=== PATIENT | female | born 1990 | race African-American/Black ===

== ENCOUNTER 2024-07-22 05:50 | Day surgery (SDC) | payer BC, SELFPAY ==
[2024-07-14 10:27] VITALS: BMI 28.3
[2024-07-22 09:24] VITALS: BP 128/71; PULSE 57; RESP 18; TEMP 36.1; O2SAT 98
[2024-07-22] MEDS: LACTATED RINGERS 1,000 ML 150 ML IV CONT (09:36)
--- NOTE | 2024-07-22 09:36 | P.PNAN_ITS ---
Anes - Initial Pre Proc Eval Procedure: Operation Date: 07/22/24 10:30 Proposed Procedures p Esophagogastroduodenoscopy & Colonoscopy - Yong Hernandez MD Date/Time: 07/22/24 09:36 Surgeon: Yong Hernandez MD Pre Op Diagnosis: MIKAYLA Patient Data Age: 34 Gender: F Height: 1.63 m Weight: 72.8 kg Last Vital Signs Temp 97 F L 07/22/24 09:24 Pulse 57 L 07/22/24 09:24 Resp 18 07/22/24 09:24 BP 128/71 07/22/24 09:24 Pulse Ox 98 07/22/24 09:24 O2 Del Method Room Air 07/22/24 09:24 Allergies Allergy/AdvReac Type Severity Reaction Status Date / Time No Known Allergies Allergy Verified 07/22/24 09:23 Home Medications Medication Instructions Recorded Confirmed Type No Home Medications 07/14/24 11 History Patient hx anesthesia problems: none Family hx anesthesia problems: none Results Review: All pre-operative results and documents have been reviewed as part of the pre-operative evaluation. [facility] Past Medical History Medical History Iron deficiency anemia Social History Social History Smoking status: Never smoker Alcohol intake: never Substance use: never Substance use type: does not use Living arrangements: with family Additional living arrangements comments: LIVES WITH DAUGHTER Spiritual care concerns: No Anes - Eval Final PreProcedure Day of Procedure 07/22/24 09:36 Patient weight: normal Heart: regular rate and rhythm Lungs: clear to auscultation Airway: Mallampati scale class II Neurological: alert and oriented Last oral intake: >/= 8 hours ASA classification: I Emergent: no Anesthetic plan: proceed Anesthesia type and monitoring: general GIVS and standard monitoring Results Review: All pre-operative results and documents have been reviewed as part of the pre- operative evaluation. Iron def anemia. Informed Consent: The patient's anesthetic plan and its attendant risks and benefits were discussed with the patient/family/POA. Questions were solicited and answers provided to the satisfaction of the patient/family/POA.
--- NOTE | 2024-07-22 09:52 | PM.HPGS ---
History of Present Illness History of Present Illness Consent: Risks, benefits, and alternatives have been discussed and questions answered. Patient agrees to proceed with procedure. Chief complaint: MIKAYLA Narrative: Catherine Quinones is a 34 year old female here for first egd and colonoscopy, no overt gib but she has MIKAYLA Review of Systems Review of Systems: All systems reviewed & are unremarkable except as noted in HPI and below PMFSH Past Medical History Medical History Iron deficiency anemia Social History Social History Smoking status: Never smoker Alcohol intake: never Substance use: never Substance use type: does not use Living arrangements: with family Additional living arrangements comments: LIVES WITH DAUGHTER Spiritual care concerns: No Meds Home Medications and Allergies Home Medications Medication Instructions Recorded Confirmed Type No Home Medications 07/14/24 07/14/24 History Allergies Allergy/AdvReac Type Severity Reaction Status Date / Time No Known Allergies Allergy Verified 07/22/24 09:23 Vital Signs Vital Signs - 24 hr 07/22/24 09:24 Temperature 97 F L Pulse Rate 57 L Respiratory Rate 18 Blood Pressure 128/71 Pulse Oximetry 98 Oxygen Delivery Room Air Exam Const: General: comfortable and no acute distress HENMT: Face/Nose/Sinus: Normal nares present Eyes: General: appearance normal, both eyes and all related structures Neck: Neck: no JVD Resp: Auscultation: clear to auscultation bilaterally Cardio: Rate: regular rate Rhythm: regular rhythm GI: Inspection: non-distended GI Palp: Yes Soft to palpation Skin: General skin exam: normal color Neuro: General: gait normal Speech: normal speech Extrem: General: normal to inspection Psych: Mental Status: mental status grossly normal Assessment and Plan Assessment and plan (1) Iron deficiency anemia: Code(s): D50.9 - Iron deficiency anemia, unspecified Status: Acute Assessment and Plan: egd and colonoscopy to check if gi source
[2024-07-22 10:26] VITALS: BP 103/57; PULSE 64; RESP 18; O2SAT 100
[2024-07-22 10:36] VITALS: BP 109/65; PULSE 60; RESP 18; O2SAT 100
[2024-07-22 10:46] VITALS: BP 109/65; PULSE 60; RESP 18; O2SAT 100
[2024-07-25 10:01] LABS: BEDSIDEPREGUCG Negative (Negative)
== END 2024-07-22 10:59 | disposition home or self-care (01) ==
PROVIDERS: Anesthesiology; PCP Emergency Medicine; Referring Provider Nurse Practitioner Family; Visit Provider Internal Medicine Gastroenterology
PROC: 0DJ08ZZ Inspection of Upper Intestinal Tract, Via Natural or Artificial Opening Endoscopic (ICD-10-PCS; CPT 43235; principal; 2024-07-22 10:30)
DX: D50.9 Iron deficiency anemia, unspecified (principal); K64.8 Other hemorrhoids
CPT/HCPCS: 43239; 45378; 88305; J2003; J2704; J7120